=== PATIENT | female | born 2000 | race Caucasian/White ===

== ENCOUNTER 2019-07-01 07:09 | Inpatient (IN) | payer OTHER ==
[~2019-07-01] VITALS: Ht 165.1 cm; Wt 63.3 kg
[2019-07-01] MEDS ORDERED: SODIUM CHLORIDE FLUSH 10ML SYR IVF ONE (07:30)
[2019-07-01] MEDS ORDERED: HYDROmorphone 1 MG/ML, 1ML INJ ONE ×4 (07:32→16:13)
[2019-07-01] MEDS: HYDROmorphone 1 MG/ML, 1ML INJ IVPush PRN ×2 (07:35→08:29)
--- NOTE | 2019-07-01 07:45 | NUR ---
LATE ENTRY: PT TO ED VIA PRIVATE VEHICLE AFTER 14 FOOT FALL OFF OF OUTDOOR [place] ONTO CONCRETE ONTO SACRUM. CHEIF COMPLAINT LOWER BACK PAIN, DENIES NUMBNESS OR TINGLING OR LOSS OF SENSATION. INCONTINANCE OF URINE WITH FALL. DENIES HITTING HEAD OR LOSS OF CONCIOUSNESS. PT PLACED IN C-COLLAR IN TRIAGE. STATES SHE HAS HAD MULTIPLE DRINKS TONIGHT, DENIES DRUG USE. PT PLACED ON MONITOR, IV ESTABLISHED AND PT MEDICATED FOR PAIN. LABS DRAWN, XRAYS PENDING.
--- NOTE | 2019-07-01 07:58 | NUR ---
PT ON LOG ROLL PRECAUTIONS, CT NOTIFIED. PT TO CT AT THIS TIME.
[2019-07-01 08:12] LABS: BASOPHILS # (AUTO) 0.01 x10^3/uL (0-0.3); BASOPHILS % (AUTO) 0 % (0-1); EOSINOPHILS # (AUTO) 0.01 x10^3/uL (0-0.8); EOSINOPHILS % (AUTO) 0 % (1-7); LYMPHOCYTES # (AUTO) 2.34 x10^3/uL (1-6.1); LYMPHOCYTES % (AUTO) 21 % (22-44); MD NO; MEAN CORPUSCULAR HEMOGLOBIN 30.2 pg (27.0-34.8); MEAN CORPUSCULAR HGB CONC 34.1 g/dL (32.4-35.8); MEAN CORPUSCULAR VOLUME 88.4 fL (80-100); MEAN PLATELET VOLUME 9.9 fL (7.4-10.4); MONOCYTES # (AUTO) 0.34 x10^3/uL (0-1.4); MONOCYTES % (AUTO) 3 % (2-9); NEUTROPHILS % (AUTO) 76 % (42-75); PLATELET COUNT 264 x10^3/uL (130-400); RED CELL DISTRIBUTION WIDTH 13.6 % (9.6-15.2)
[2019-07-01 08:22] LABS: ALBUMIN 3.8 g/dL (3.4-5.0); ANION GAP 9 mmol/L (5-15); CALCIUM 8.7 mg/dL (8.5-10.1); CHLORIDE 111 mmol/L (98-107); CREATININE 0.78 mg/dL (0.55-1.02)
--- NOTE | 2019-07-01 08:31 | NUR ---
OK TO REMOVE C-COLLAR PER MD. PT GIVEN ADDITIONAL DOSE OF PAIN MEDICATION FOR 8/10 PAIN. FRIENDS AT BEDSIDE. PT ON MONITOR. AWAITING CT RESULTS.
--- NOTE | 2019-07-01 09:01 | NUR ---
PT STATES LAST TIME SHE ATE WAS YESTERDAY AT 3PM, SHE DRANK CLEAR LIQUIDS THIS AM
[2019-07-01] MEDS ORDERED: KETAMINE 10 MG/ML, 20ML IV STA ×2 (09:24→11:10)
[2019-07-01] MEDS ORDERED: KETAMINE 10 MG/ML, 20ML ONE (09:24)
--- NOTE | 2019-07-01 09:39 | NUR ---
MOTHER AND SISTER AT BEDSIDE
--- NOTE | 2019-07-01 09:42 | NUR ---
PER MRI THEY WILL COME GET PT IN 1H, THEY HAVE PT ON TABLE FOR ONE HR EXAM RIGHT NOW.
--- NOTE | 2019-07-01 10:42 | NUR ---
Throughput RN note: This RN called [facility] to initiate transfer of pt per pt and family request. Dr. Ladd aware of this. This RN spoke with Sherin at [facility], she states transfer MD to return call [facility].
--- NOTE | 2019-07-01 11:04 | NUR ---
PT RESTING IN [facility] WITH FAMILY AT BEDSIDE. STRAIGHT CATH DONE AND WALKED TO LAB.
[2019-07-01 11:20] LABS: MICROSCOPIC INDICATED
[2019-07-01 11:25] LABS: SALICYLATE LEVEL < 1.7 mg/dL (2.8-20.0)
[2019-07-01 11:27] LABS: AMPHETAMINE SCREEN, URINE Negative (Negative); BARBITURATE SCREEN, URINE Negative (Negative); BENZODIAZEPINE SCREEN, URINE Negative (Negative); CANNABINOID SCREEN, URINE Negative (Negative); COCAINE SCREEN, URINE Positive (Negative); OPIATE SCREEN, URINE Positive (Negative)
--- NOTE | 2019-07-01 11:27 | NUR ---
PT TO MRI, RN TO MRI TO ASSIST WITH LOG ROLL. PT GIVEN ADDITIONAL DOSE OF KETAMINE FOR 8/10 PAIN.
[2019-07-01 11:30] LABS: CULTURE INDICATED? NO
[2019-07-01] MEDS ORDERED: [UNRECOGNIZED DRUG - REMARK] (11:36)
[2019-07-01 11:48] LABS: HCG UR SG 1.014 (1.003-1.030)
--- NOTE | 2019-07-01 11:48 | NUR ---
PT REPORT FROM LEROY JOSEPH. PT CURRENTLY IN MRI.
--- NOTE | 2019-07-01 11:52 | NUR ---
REPORT TO BECCA HARPER, PT IN MRI, TO RETURN TO ROOM 24 WHEN RETURNING FROM MRI.
[2019-07-01 12:04] LABS: METHADONE SCREEN, URINE Negative (Negative)
--- NOTE | 2019-07-01 12:24 | NUR ---
PT STILL IN RADIOLOGY
--- NOTE | 2019-07-01 12:31 | NUR ---
PT REPORT TO LEROY CORRAL. PT CARE TRANSFERRED
--- NOTE | 2019-07-01 13:21 | NUR ---
PT MEDICATED WITH 1MG DILAUDID FOR PAIN. VS UPDATED AND WNL. DR. RUSSELL AT BEDSIDE.
--- NOTE | 2019-07-01 13:26 | NUR ---
Throughput RN note: MRI results back. [facility] re-paged per Dr. Ladd.
[2019-07-01] MEDS ORDERED: HYDROmorphone 2 MG/ML, 1ML IVPush PRN ×2 (13:30→15:30)
--- NOTE | 2019-07-01 14:17 | NUR ---
Throughput RN note: Cherie with [facility] called and states that they are working on a bed for the patient.
[2019-07-01] MEDS ORDERED: OMNIPAQUE 350 MG/ML, 100ML BOTTLE ONE (14:44)
[2019-07-01] MEDS ORDERED: morphine SULFATE 10 MG/ML, 1ML IVPush PRN (15:00)
[2019-07-01] MEDS ORDERED: KETOROLAC 30 MG/1 ML IVPush STA (15:40)
--- NOTE | 2019-07-01 15:55 | NUR ---
TASK RN: LOERA CATHETER PLACED, STERILE TECHNIQUE MAINTAINED. PT TOLERATED PROCEDURE WELL, SEE LOERA CHECKLIST.
[2019-07-01] MEDS ORDERED: KETOROLAC 30 MG/1 ML ONE (16:30)
[2019-07-01] MEDS ORDERED: METHOCARBAMOL 750 MG TABLET ONE (16:30)
[2019-07-01] MEDS: METHOCARBAMOL 500 MG TABLET PO SCH ×2 (16:33→21:40)
--- NOTE | 2019-07-01 16:45 | NUR ---
SBAR TELEPHONE HAND-OFF REPORT TO LEROY WARREN.
[2019-07-01 17:30] VITALS: BP 116/75
[2019-07-01] MEDS: SODIUM CHLORIDE 0.9% 1,000 ML IV SCH (18:15)
[2019-07-01 20:03] VITALS: BP 111/73
[2019-07-01] MEDS ORDERED: IRON1TAB60 PO (21:05)
[2019-07-01] MEDS: ENOXAPARIN 40 MG/0.4 ML SQ SCH (21:40)
[2019-07-01] MEDS: KETOROLAC 30 MG/1 ML IVPush SCH (21:40)
[2019-07-01] MEDS ORDERED: DIPHENHYDRAMINE 50 MG CAPSULE PO PRN (23:30)
[2019-07-02 01:36] VITALS: BP 92/62
[2019-07-02] MEDS: KETOROLAC 30 MG/1 ML IVPush SCH ×3 (03:44→14:32)
[2019-07-02 05:07] LABS: BASOPHILS # (AUTO) 0.05 x10^3/uL (0-0.3); BASOPHILS % (AUTO) 1 % (0-1); EOSINOPHILS # (AUTO) 0.13 x10^3/uL (0-0.8); EOSINOPHILS % (AUTO) 1 % (1-7); LYMPHOCYTES # (AUTO) 3.31 x10^3/uL (1-6.1); LYMPHOCYTES % (AUTO) 34 % (22-44); MD NO; MEAN CORPUSCULAR HEMOGLOBIN 29.6 pg (27.0-34.8); MEAN CORPUSCULAR HGB CONC 33.5 g/dL (32.4-35.8); MEAN CORPUSCULAR VOLUME 88.6 fL (80-100); MEAN PLATELET VOLUME 10.3 fL (7.4-10.4); MONOCYTES # (AUTO) 0.83 x10^3/uL (0-1.4); MONOCYTES % (AUTO) 8 % (2-9); NEUTROPHILS # (AUTO) 5.57 x10^3/uL (1.8-8.0); NEUTROPHILS % (AUTO) 56 % (42-75); PLATELET COUNT 239 x10^3/uL (130-400); RED BLOOD COUNT 4.26 x10^6/uL (3.82-5.3)
[2019-07-02 05:18] LABS: ANION GAP 7 mmol/L (5-15); CALCIUM 8.2 mg/dL (8.5-10.1); CHLORIDE 109 mmol/L (98-107)
[2019-07-02] MEDS: METHOCARBAMOL 500 MG TABLET PO SCH ×3 (08:42→22:04)
[2019-07-02] MEDS: HYDROmorphone 2 MG/ML, 1ML IVPush PRN ×5 (09:19→20:57)
[2019-07-02 09:34] VITALS: BP 103/66
[2019-07-02] MEDS: ENOXAPARIN 40 MG/0.4 ML SQ SCH (14:31)
[2019-07-02 14:47] VITALS: BP 119/72
[2019-07-02] MEDS: SODIUM CHLORIDE 0.9% 1,000 ML IV SCH (17:38)
[2019-07-02 19:02] VITALS: BP 127/81
[2019-07-02] MEDS ORDERED: HYDROmorphone 1 MG/ML, 1ML INJ IVPush ONE (22:45)
[2019-07-02] MEDS ORDERED: HYDROmorphone 2 MG/ML, 1ML ONE (22:53)
[2019-07-02] MEDS: ACETAMINOPHEN 325 MG TABLET PO PRN (23:15)
[2019-07-03 00:03] VITALS: BP 106/61
[2019-07-03] MEDS: SODIUM CHLORIDE 0.9% 1,000 ML IV SCH ×2 (02:03→08:44)
[2019-07-03] MEDS: HYDROmorphone 2 MG/ML, 1ML IVPush PRN ×4 (02:04→11:49)
[2019-07-03 07:17] VITALS: BP 107/65
[2019-07-03] MEDS: ACETAMINOPHEN 325 MG TABLET PO PRN (08:45)
[2019-07-03] MEDS: METHOCARBAMOL 500 MG TABLET PO SCH (08:45)
== END 2019-07-03 12:26 | disposition short-term general hospital (02) | DRG 552 ==
LOC: ED 08:57 → EDIP 15:29 → 3N 17:21
PROVIDERS: ADMIT Internal Medicine Infectious Disease; ATTEND Internal Medicine Infectious Disease
PROC: 0T9B70Z Drainage of Bladder with Drainage Device, Via Natural or Artificial Opening (ICD-10-PCS; principal; 2019-07-01)
PROC: 2W3CX1Z Immobilization of Right Lower Arm using Splint (ICD-10-PCS; 2019-07-01)
DX: S32.020A Wedge compression fracture of second lumbar vertebra, initial encounter for closed fracture (principal); D72.828 Other elevated white blood cell count; F10.129 Alcohol abuse with intoxication, unspecified; Y90.9 Presence of alcohol in blood, level not specified; F12.90 Cannabis use, unspecified, uncomplicated; F14.10 Cocaine abuse, uncomplicated; Z88.6 Allergy status to analgesic agent; Z88.0 Allergy status to penicillin; Z88.2 Allergy status to sulfonamides; R32 Unspecified urinary incontinence; W13.0XXA Fall from, out of or through balcony, initial encounter; Y93.89 Activity, other specified; Y92.89 Other specified places as the place of occurrence of the external cause; Y99.8 Other external cause status; S92.251A Displaced fracture of navicular [scaphoid] of right foot, initial encounter for closed fracture; S62.001A Unspecified fracture of navicular [scaphoid] bone of right wrist, initial encounter for closed fracture; S32.011A Stable burst fracture of first lumbar vertebra, initial encounter for closed fracture
CPT/HCPCS: 29125; 36415; 71045; 72020; 72110; 72125; 72128; 72131; 72146; 72148; 72192; 74177; 80048; 80307; 81001; 81025; 82040; 85025; G0378; J1170; J1650; J1885; Q9967; J7030

== ENCOUNTER 2020-05-13 15:48 | Emergency (ER) | payer OTHER ==
[~2020-05-13] VITALS: Ht 162.6 cm; Wt 62.2 kg
[~2020-05-13 15:48] MED LIST: IRON1TAB60 PO; [UNRECOGNIZED DRUG - REMARK]
[2020-05-13] MEDS ORDERED: PROCHLORPERAZINE 5 MG/ML, 2ML IVPush ONE (17:00)
[2020-05-13] MEDS ORDERED: SODIUM CHLORIDE FLUSH 10ML SYR IVF ONE (17:00)
[2020-05-13] MEDS ORDERED: KETOROLAC 30 MG/1 ML IVPush ONE (17:00)
[2020-05-13] MEDS ORDERED: DIPHENHYDRAMINE 50 MG/ML, 1ML IVPush ONE (17:00)
[2020-05-13 17:01] VITALS: BP 122/68
--- NOTE | 2020-05-13 17:01 | NUR ---
PT UPRIGHT ON GURNEY AWAKE & CALM, TEXTING ON CELLPHONE, RESPONDS APPROP TO STAFF, NAD, COMFORT MEASURES PROVIDED, CALL LIGHT WITHIN REACH.
[2020-05-13] MEDS ORDERED: KETOROLAC 30 MG/1 ML ONE (17:10)
[2020-05-13] MEDS ORDERED: PROCHLORPERAZINE 5 MG/ML, 2ML ONE (17:10)
[2020-05-13] MEDS ORDERED: DIPHENHYDRAMINE 50 MG/ML, 1ML ONE (17:10)
[2020-05-13 17:26] LABS: BASOPHILS % (AUTO) 1 % (0-1); EOSINOPHILS % (AUTO) 2 % (1-7); LYMPHOCYTES % (AUTO) 46 % (22-44); MEAN CORPUSCULAR HEMOGLOBIN 29.4 pg (27.0-34.8); MEAN PLATELET VOLUME 9.6 fL (7.4-10.4); MONOCYTES % (AUTO) 7 % (2-9); NEUTROPHILS % (AUTO) 44 % (42-75); PLATELET COUNT 282 x10^3/uL (130-400); RED BLOOD COUNT 4.66 x10^6/uL (3.82-5.3); RED CELL DISTRIBUTION WIDTH 12.9 % (9.6-15.2)
[2020-05-13 17:35] LABS: MD NO
[2020-05-13 17:38] LABS: ALANINE AMINOTRANSFERASE 21 U/L (12-78); ALBUMIN 3.8 g/dL (3.4-5.0); ANION GAP 6 mmol/L (5-15); CALCIUM 8.8 mg/dL (8.5-10.1); CHLORIDE 108 mmol/L (98-107); CREATININE 0.82 mg/dL (0.55-1.02)
[2020-05-13 17:43] LABS: ALKALINE PHOSPHATASE 50 U/L (45-117); BILIRUBIN,TOTAL 0.4 mg/dL (0.2-1.0)
[2020-05-13 17:47] LABS: MICROSCOPIC NOT IND
--- NOTE | 2020-05-13 18:47 | NUR ---
TASK RN: RN TO ROOM TO GIVE DC INSTRUCTION. PT NO LONGER IN ROOM. NO PERSONAL BELONGINGS. PT ASSUMED TO HAVE LEFT.
--- NOTE | 2020-05-13 18:49 | NUR ---
TASK RN: PRIMARY RN AWARE THAT PT WAS NO LONGER IN ROOM.
--- NOTE | 2020-05-13 19:03 | NUR ---
PT ELOPED PRIOR TO RECEIVING DC INSTRUCTIONS & PIV REMOVAL. CALLED PT- "I TALKED TO THE PA INGRDI & SHE SAID I COULD GO BECAUSE I GOT A TEXT SAYING SOMEONE WAS BREAKING INTO MY HOUSE BUT I TOOK IT OUT WHEN I TOOK A SHOWER". EDUC PT ON PIV REMOVAL PRIOR TO LEAVING ED & RPD NOTIFICATION, PT STATES SHE WILL IMMEDIATELY RETURN TO ED FOR SITE ASSESSMENT, SHELVING SUPERVISOR (NAHID) AWARE. PER PA, PT WAS TOLD TO WAIT FOR RN FOR DC INSTRUCTIONS.
--- NOTE | 2020-05-13 19:35 | NUR ---
PT RETURNED TO TRIAGE AND WAS ABLE TO SHOW BUILDING RIGGER NAHID THAT PIV WAS REMOVED.
== END 2020-05-13 19:09 | disposition home or self-care (01) ==
LOC: ED 17:42
DX: R51.9 Headache, unspecified (principal); R11.10 Vomiting, unspecified; M54.2 Cervicalgia; J45.909 Unspecified asthma, uncomplicated; Z88.0 Allergy status to penicillin; Z88.5 Allergy status to narcotic agent; Z88.2 Allergy status to sulfonamides
CPT/HCPCS: 36415; 80053; 81003; 84703; 85025; 96374; 96375; 99284; J0780; J1200; J1885